=== PATIENT | male | born 1940 | race Caucasian/White ===

== ENCOUNTER 2018-07-17 16:20 | Emergency (ER) | payer MEDICARE ==
[2018-07-17] MEDS ORDERED: Meclizine HCl 25 MG TAB ONE ×2 (16:43)
[2018-07-17] MEDS ORDERED: Aspirin Chewable 81 MG TAB ONE (17:06)
[2018-07-17 17:37] LABS: #Basophils 0.1 thou/uL (0.0-0.2); #Lymphocytes 1.4 thou/uL (1.20-3.40); #Monocytes 0.5 thou/uL (0.11-0.59); #Neutrophils 8.4 thou/uL (1.40-6.50); %Basophils 0.9 % (0.0-1.0); %Eosinophils 0.3 % (0.0-10.0); %Lymphocytes 13.5 % (21.0-51.0); %Neutrophils 80.3 % (42.0-75.0); Hemoglobin 18.3 g/dL (14.0-18.0); Mean Corpuscular HGB CONC 33.8 g/dL (32.0-36.0); Mean Corpuscular Volume 88.8 fL (78.0-98.0); Mean Platelet Volume 8.7 fL (7.4-10.4); Platelet Count 183 thou/uL (130-400); RBC Distribution Width 13.3 % (11.5-14.5); White Blood Cell (WBC) Count 10.5 thou/uL (4.8-10.8)
[2018-07-17 17:42] LABS: ALT (SGPT) 28 U/L (8-55); AST (SGOT) 25 U/L (5-34); Albumin 4.2 g/dL (3.4-4.8); Alkaline Phosphatase 77 U/L (40-150); Anion Gap 18 mmol/L (10-20); BUN (Urea Nitrogen) 10 mg/dL (8.4-25.7); Bilirubin, Total 0.7 mg/dL (0.2-1.2); Calc. Creatinine Clearance 0 mL/min (70-130); Calcium 9.7 mg/dL (7.8-10.44); Carbon Dioxide 25 mmol/L (23-31); Chloride 101 mmol/L (98-107); Estimated GFR-MDRD Greater than 90; Globulin 3.6 g/dL (2.4-3.5); Glucose 163 mg/dL (83-110); Protein, Total 7.8 g/dL (5.8-8.1); Sodium 140 mmol/L (136-145)
--- NOTE | 2018-07-17 18:15 | CT ---
HEAD CT WITHOUT CONTRAST: 07/17/18 COMPARISON: None. HISTORY: Dizziness. TECHNIQUE: Axial CT imaging at 5 mm intervals from vertex through skull base without contrast. FINDINGS: Imaged paranasal sinuses/mastoid air cells are well aerated. No displaced calvarial fracture. No intr acranial hemorrhage, midline shift, mass effect or ventricular enlargement. IMPRESSION: No intracranial hemorrhage. Results called to Dr. Canseco, 6:05 p.m., 07/17/18. POS: [facility]
--- NOTE | 2018-07-17 19:40 | CT ---
CT ANGIOGRAM OF THE HEAD CT ANGIOGRAM OF THE NECK 07/17/18 COMPARISON: None. HISTORY: Dizziness, vertical nystagmus, concern for acute infarction. TECHNIQUE: Axial CT imaging is obtained at 1.25 mm intervals from the vertex through the lung apices with IV con trast using a CT angiogram protocol. Coronal and sagittal 3D reformatted imaging obtained. FINDINGS: The imaged lung apices demonstrates partially calcified bilateral apical pleural plaque formation. The retroantral fat and the parapharyngeal fat appears clear bilaterally. The parotid and submandibul ar glands appear grossly unremarkable. Limited assessment of the aerodigestive tract demonstrates a g rossly unremarkable appearance of the floor of mouth and tongue, the tonsillar pillars, the epiglotti s and pre-epiglottic fat, the hyoid bone, the thyroid cartilage, the cricoid cartilage, the level of the glottis, and the region of the thyroid gland. No lymphadenopathy is apparent within the neck. The origin of the innominate artery, left common carotid artery, and left subclavian artery are marke dly tortuous and demonstrate no hemodynamically significant stenosis on the basis of NASCET criteria. There is mild calcification at the origin of the right subclavian artery. Origin of right common car otid artery appears unremarkable. Proximal common carotid arteries are tortuous bilaterally. On the basis of NASCET criteria, there is no hemodynamically significant stenosis involving the inter nal carotid artery on either side. There is mild atherosclerotic calcification at the origin of the r ight internal carotid artery. There is calcification at the origin of the left vertebral artery with mild stenosis at the origin of the left vertebral artery. The left vertebral artery is dominant. It is tortuous proximally and dist ally but appears otherwise unremarkable. The right vertebral artery is diffusely hypoplastic. The origin of the right vertebral artery appears grossly unremarkable. There is multifocal mild stenosis involving the vertebral artery on the right. The right vertebral artery is quite hypoplastic distally. 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 There is a segment of unopacified vertebral artery measuring ap proximately 1-2 cm in length. The distal most aspect of the right vertebral artery just proximal to t he origin of the basilar artery is opacified. This could represent retrograde filling from the left v ertebral system. This segment of vertebral artery occlusion is age indeterminate. An acute occlusion of a portion of the distal segment of the right vertebral artery cannot be excluded. The distal most aspect of the right vertebral artery is patent and opacified. The basilar artery is patent. The branches of the basilar artery are patent as well, including patenc y of bilateral posterior cerebral arteries. There is a focal area of mild stenosis involving the P1 s egment on the left. There is atherosclerotic calcification of the cavernous carotid arteries bilaterally. The M1 segment and the A1 segment is patent bilaterally. The MCA bifurcation is unremarkable and the distal MCA and distal RADHA branches appear grossly unremarkable. Review of the osseous structures demonstrates degenerative change at the atlanto-axial interspace. Th ere is multilevel cervical spine facet and uncovertebral osteophyte formation with no worrisome lytic or blastic bone lesion noted. IMPRESSION: 1. 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 An acute occlusion cannot be excluded. Of note, the basilar artery appears patent. 2. No evidence for anterior circulation abnormality intracranially. 3. No hemodynamically significant stenosis seen involving the internal or common carotid artery on either side. 4. If there is clinical concern for acute infarction, brain MRI is recommended. 5. Results called to Dr. Canseco at 6:27 p.m., 07/17/18. Code CR POS: [facility]
== END 2018-07-17 20:36 | disposition home or self-care (01) ==
LOC: BURERS 16:20
DX: G46.3 Brain stem stroke syndrome (principal); E78.5 Hyperlipidemia, unspecified; I10 Essential (primary) hypertension; Z79.899 Other long term (current) drug therapy; Z79.82 Long term (current) use of aspirin
CPT/HCPCS: 70450; 70496; 80053; 84484; 85025; 93005